=== PATIENT | female | born 1990 | race Caucasian/White ===

== ENCOUNTER 2018-01-12 08:38 | Emergency (ER) | payer OTHER ==
[2018-01-12 09:21] VITALS: BP 129/88
--- NOTE | 2018-01-12 10:01 | RAD ---
Indication: LEFT knee and ankle pain post fall 2 days ago. Comparison: No relevant prior exams available on the [facility] for comparison. Technique: LEFT knee: AP, tunnel, lateral, sunrise views. Report: Negative for joint effusion, fracture, articular malalignment, or joint space narrowing. Unremarkable soft tissue contours. IMPRESSION: #. Negative radiographic exam of the LEFT knee.
--- NOTE | 2018-01-12 10:03 | RAD ---
Indication: LEFT ankle pain post fall 2 days ago. Comparison: No relevant prior exams available on the [facility] P[facility] for comparison. Technique: AP, mortise, and lateral views LEFT ankle. REPORT AND IMPRESSION: #. Tiny osseous irregularity at the caudal margin of the lateral malleolus appears most suspicious for an accessory ossicle given smooth margins. No definitive fracture evident. #. Normal articular alignment. #. Soft tissue swelling most prominent over the medial malleolus.
--- NOTE | 2018-01-12 10:58 | RAD ---
INDICATION: LEFT calf pain. Bee stings at the knee and ankle. COMPARISON: No relevant prior exams available on the [facility] for comparison. TECHNIQUE: Barnett scale, color Doppler, and spectral analysis of the deep veins of the LEFT lower extremity. Vessel compression, phasicity, and augmentation assessed. REPORT: The LEFT common femoral, great saphenous, profunda femoral, femoral, popliteal, peroneal, and posterior tibial veins are patent. Patency of the RIGHT common femoral vein documented. IMPRESSION: No evidence for LEFT lower extremity deep venous thrombosis.
--- NOTE | 2018-01-12 11:00 | UC ---
Lower Extremity/Ankle HPI - HPI Summary HPI Summary: left ankle and left knee pain x 3 days, no known injury , pain started 3 days ago after running an obstacle course for 7 to 10 miles , no fever, no chills pain is sever, difficulty walking, been using crutches - History of Current Complaint Chief Complaint: UCLowerExtremity Stated Complaint: LEFT ANKLE INJ/EXT.LEFT KNEE Time Seen by Provider: 01/12/18 09:08 Hx Obtained From: Patient Hx Last Menstrual Period: 12/10/17 Onset/Duration: Gradual Onset, Lasting Days - 3, Still Present Severity Initially: Severe Severity Currently: Severe Pain Intensity: 5 Aggravating Factor(s): Standing, Ambulation Alleviating Factor(s): Rest Able to Bear Weight: No - Allergies/Home Medications Allergies/Adverse Reactions: Allergies Allergy/AdvReac Type Severity Reaction Status Date / Time Iodinated Contrast- Oral and Allergy Hives and Verified 01/12/18 09:16 IV Dye Swelling iodine Allergy Rash Verified 01/12/18 09:16 Home Medications: Home Medications Fexofenadine/Pseudoephedrine [Heather-D 24 Hour Tablet] 1 each PO DAILY PRN [History Confirmed 01/12/18] Fluticasone NASAL SPRAY 50MCG* [Flonase NASAL SPRAY 50MCG*] 2 spray BOTH NARES DAILY PRN 01/12/18 [History Confirmed 01/12/18] PMH/Surg Hx/FS Hx/Imm Hx Previously Healthy: Yes - Surgical History Surgical History: Yes Surgery Procedure, Year, and Place: Left Hip Labrum Tear, 2011; PRK Eye, 2011; T &A, 2003 - Family History Known Family History: Negative: Diabetes - Social History Alcohol Use: Occasionally Substance Use Type: None Smoking Status (MU): Never Smoked Tobacco Review of Systems Constitutional: Negative Skin: Negative Eyes: Negative ENT: Negative Respiratory: Negative Cardiovascular: Negative Is Patient Immunocompromised?: No All Other Systems Reviewed And Are Negative: Yes Physical Exam Triage Information Reviewed: Yes Appearance: Well-Appearing, No Pain Distress, Well-Nourished Vital Signs: Initial Vital Signs Temp 98.7 F 01/12/18 09:17 Pulse 90 01/12/18 09:17 Resp 16 01/12/18 09:17 BP 129/88 01/12/18 09:17 Pulse Ox 100 01/12/18 09:17 Vital Signs Reviewed: Yes Eyes: Positive: Conjunctiva Clear ENT: Positive: Normal ENT inspection, Hearing grossly normal, Pharynx normal Neck: Positive: Supple, Nontender Respiratory: Positive: Chest non-tender, Lungs clear, Normal breath sounds Cardiovascular: Positive: RRR, No Murmur, Pulses Normal Musculoskeletal: Positive: Other: - left ankle : + diffuse tenderness , more medial ankle , pain with any ROM , + area of ecchymosis, mild swellign left knee : no swelling, no effusion , no tenderness, pain with flexion tenderness left calf, no swelling, Diagnostics - Laboratory Diagnostic Studies Completed/Ordered: xray left knee: IMPRESSION: #. Negative radiographic exam of the LEFT knee. xray left ankle : REPORT AND IMPRESSION: #. Tiny osseous irregularity at the caudal margin of the lateral malleolus appears most. suspicious for an accessory ossicle given smooth margins. No definitive fracture evident. #. Normal articular alignment. #. Soft tissue swelling most prominent over the medial malleolus. left lower ext doppler study : IMPRESSION: No evidence for LEFT lower extremity deep venous thrombosis. Lower Extremity Course/Dx - Differential Dx/Diagnosis Provider Diagnoses: left ankle pain. left knee pain Discharge - Sign-Out/Discharge Documenting (check all that apply): Patient Departure All imaging exams completed and their final reports reviewed: Yes - Discharge Plan Condition: Stable Disposition: HOME Prescriptions: Naproxen [Naproxen 500 mg tab] 500 mg PO BID #20 tablet. Patient Education Materials: Arthralgia (ED) Referrals: No Primary Care Phys,NOPCP [Primary Care Provider] - 3 Days - Billing Disposition and Condition Condition: STABLE Disposition: Home
== END 2018-01-12 11:14 | disposition home or self-care (01) ==
LOC: UCCORT 08:38
DX: M25.562 Pain in left knee (principal); M25.572 Pain in left ankle and joints of left foot; Z88.8 Allergy status to other drugs, medicaments and biological substances; Z91.041 Radiographic dye allergy status
CPT/HCPCS: 99202; G0463